=== PATIENT | male | born 1950 | race Two or more races ===

== ENCOUNTER 2022-04-29 19:12 | Inpatient (IN) | payer OTHER ==
[~2022-04-29] VITALS: Ht 182.9 cm; Wt 106.6 kg
--- NOTE | 2022-04-29 19:21 | NUR ---
CORBIN FROM A RESTAURANT, HAD LARGE BM W NOTED BLOOD, HYPOTENSIVE IN THE FIELD, WAS GIVEN APPROX 350ML NS CLOTH SHADER. PT A/OX4. TOLERATING R/A WELL WITH NO SOB. DENIES PAIN. CONNECTED PT TO POX AND MONITOR. SAFETY MEASURES IN PLACE.
--- NOTE | 2022-04-29 19:55 | NUR ---
RFA #18G S/L BLOOD COLLECTED AND SENT TO LAB
[2022-04-29] MEDS ORDERED: IV NS 0.9% 1,000 ML BAG IV ONE (20:00)
--- NOTE | 2022-04-29 20:07 | NUR ---
EMT AT PT'S BEDSIDE
--- NOTE | 2022-04-29 20:22 | NUR ---
DR. GUILLERMO JACKSON AT PT'S BEDSIDE FOR RECTAL EXAM
[2022-04-29 20:37] LABS: BASOPHILS % (AUTO) 0.5 % (0.0-2.0); EOSINOPHILS % (AUTO) 2.4 % (0.0-6.0); HEMATOCRIT 34 % (39-51); LYMPHOCYTES # (AUTO) 1.9 K/uL (0.8-4.8); MEAN CORPUSCULAR HGB CONC 32 g/dl (31.0-36.0); MEAN CORPUSCULAR VOLUME 61 fL (80-96); MONOCYTES # (AUTO) 0.6 K/uL (0.1-1.30); MONOCYTES % (AUTO) 7.6 % (2.0-12.0); NEUTROPHILS # (AUTO) 5.2 K/uL (1.8-8.9); NEUTROPHILS % (AUTO) 65.5 % (43.0-81.0); PLATELET COUNT (AUTO) 238 K/uL (150-450)
--- NOTE | 2022-04-29 20:44 | NUR ---
COVID SWAB COLLECTED AND SENT TO LAB
[2022-04-29 20:54] LABS: CALCIUM, SERUM 7.9 mg/dL (8.5-10.1); CARBON DIOXIDE 23 mmol/L (21-32); CHLORIDE 108 mmol/L (98-107); GLUCOSE 151 mg/dL (74-106); POTASSIUM 3.3 mmol/L (3.5-5.1); SODIUM SERUM 142 mmol/L (136-145); UREA NITROGEN, BLOOD 23 mg/dL (7-18)
[2022-04-29 20:57] LABS: OCCULT BLOOD STOOL POSITIVE (NEGATIVE)
[2022-04-29 21:01] LABS: ALANINE AMINOTRANSFERASE 28 U/L (12-78); ALBUMIN 3.5 g/dL (3.4-5.0); ALKALINE PHOSPHATASE 66 U/L (46-116); ASPARTATE AMINOTRANSFERASE 21 U/L (15-37); BILIRUBIN,DIRECT 0.2 mg/dL (0.0-0.2); BILIRUBIN,TOTAL 0.8 mg/dL (0.2-1.0); TOTAL PROTEIN, SERUM 6.3 g/dL (6.4-8.2)
--- NOTE | 2022-04-29 21:17 | NUR ---
CALLED DR MACKAY FOR GI CONSULT. WAITING FOR HIS CALL BACK
--- NOTE | 2022-04-29 21:24 | NUR ---
DR MACKAY ON THE PHONE WITH DR LI
[2022-04-29] MEDS ORDERED: Calcium Gluconate 1GM/10ML 4.65 MEQ in IV NS 0.9% 100 ML IV ONE (21:30)
[2022-04-29] MEDS ORDERED: Calcium Gluconate 0.465 MEQ/ML VIAL IV ONE (21:46)
--- NOTE | 2022-04-29 22:17 | NUR ---
KULWANT GALINDO DNP AT PT'S BEDSIDE FOR JOSEAL
[2022-04-29] MEDS ORDERED: ONDANSETRON HCL/PF 4 MG/2 ML VIAL IVP PRN (23:00)
[2022-04-29] MEDS ORDERED: MAG HYDROX/AL HYDROX/SIMETH 30 ML UDC PO PRN (23:00)
[2022-04-29] MEDS ORDERED: MORPHINE SULFATE INJ 2 MG/ML DISP.SYRIN IV PRN (23:00)
--- NOTE | 2022-04-29 23:45 | NUR ---
REPORT GIVEN TO SRIKANTH Florian RN FOR NORA
--- NOTE | 2022-04-30 00:28 | NUR ---
PT TRANSFERRED TO 3W VIA ACLS PROTOCOL. VSS. ALL BELONGINGS WITH PT. PT TEXTED SON TO GIVE HOME MEDS IN THE MORNING.
[2022-04-30 00:45] VITALS: BP 138/76
--- NOTE | 2022-04-30 00:45 | NUR ---
TELE/RN ADMITTING NOTE PATIENT ARRIVED TO UNIT VIA [facility] AND 2 STAFF MEMBERS. PATIENT IS BEING ADMITTED WITH DX OF LOWER GI BLEED. PATIENT IS ALERT AND ORIENTED X 4. ABLE TO MAKE NEEDS KNOWN. AMBULATED FROM RNEY TO BED WITH STEADY GAIT. DENIES PAIN AT THIS TIME. CONTINUES ON ROOM AIR WITH NO S/SX OF RESPIRATORY DISTRESS NOTED. IV ACCESS TO RIGHT FOREARM #18G INTACT, PATENT AND SALINE LOCKED. CONTINUES ON NPO STATUS FOR GI FOLLOW UP WITH DR. MACKAY IN AM. PATIENT AWARE AND AGREEABLE. TELE MONITOR PLACED WITH CURRENT READING SR WITH [facility]. SKIN CHECK PERFORMED ON ADMISSION WITH NO SKIN ISSUES NOTED. PATIENT ORIENTED TO ROOM, CALL LIGHT AND UNIT. CALL LIGHT WITHIN REACH. ASPIRATION, FALL AND SAFETY PRECAUTIONS MAINTAINED. ALL NEEDS ATTENDED TO AT THIS TIME.
[2022-04-30] MEDS: IV NS 0.9% 1,000 ML IV PRN ×2 (00:54→14:11)
--- NOTE | 2022-04-30 06:35 | NUR ---
TELE/RN CLOSING NOTE PATIENT CURRENTLY SLEEPING IN BED. ALERT AND ORIENTED X 4. ABLE TO MAKE NEEDS KNOWN. DENIES PAIN AT THIS TIME. CONTINUES ON ROOM AIR WITH NO S/SX OF RESPIRATORY DISTRESS NOTED. IV ACCESS TO RIGHT FOREARM #18G INTACT AND PATENT. CONTINUES ON IVF NS @ 75ML/HR. CONTINUES ON NPO STATUS FOR GI FOLLOW UP TODAY. PATIENT IS AMBULATORY WITH STEADY GAIT. CALL LIGHT WITHIN REACH. ASPIRATION, FALL AND SAFETY PRECAUTIONS MAINTAINED. WILL ENDORSE PLAN OF CARE TO ONCOMING SHIFT RN. Addendum: 04/30/22 at 0641 by OANH RIOS RN TELE MONITOR CURRENTLY READING SR WITH [facility].
--- NOTE | 2022-04-30 07:35 | NUR ---
RN Opening Note Received report from RN, pt sleeping with no signs of distress, easily aroused. Will continue to monitor throughout shift. Pts IV Intact with no signs of infiltration. All safety precautions taken, bed at lowest position, call light and table within reach.
[2022-04-30 07:47] LABS: BASOPHILS % (AUTO) 0.1 % (0.0-2.0); EOSINOPHILS % (AUTO) 1.4 % (0.0-6.0); HEMATOCRIT 30 % (39-51); HEMOGLOBIN 9.5 g/dL (13.5-17.5); LYMPHOCYTES # (AUTO) 1.1 K/uL (0.8-4.8); LYMPHOCYTES % (AUTO) 14.7 % (20.0-44.0); MEAN CORPUSCULAR HGB CONC 32 g/dl (31.0-36.0); MEAN CORPUSCULAR VOLUME 62 fL (80-96); MONOCYTES # (AUTO) 0.5 K/uL (0.1-1.30); MONOCYTES % (AUTO) 7.1 % (2.0-12.0); NEUTROPHILS # (AUTO) 5.7 K/uL (1.8-8.9); NEUTROPHILS % (AUTO) 76.7 % (43.0-81.0); PLATELET COUNT (AUTO) 222 K/uL (150-450); RED BLOOD CELL COUNT(AUTO) 4.83 MIL/uL (4.5-6.0); WHITE BLOOD COUNT (AUTO) 7.4 K/uL (4.3-11.0)
[2022-04-30 08:00] VITALS: BP 144/75
[2022-04-30 08:03] LABS: THYROID STIMULATING HORMONE 1.304 uIU/mL (0.358-3.74)
[2022-04-30 08:04] LABS: CALCIUM, SERUM 7.3 mg/dL (8.5-10.1); CREATININE 0.9 mg/dL (0.6-1.3); MAGNESIUM 1.8 mg/dL (1.8-2.4); PHOSPHORUS 3.2 mg/dL (2.5-4.9)
[2022-04-30] MEDS: PANTOPRAZOLE 40 MG VIAL IV SCH ×2 (08:55→20:58)
[2022-04-30] MEDS ORDERED: LISI20TA30 PO (09:27)
[2022-04-30] MEDS ORDERED: ATOR40TA PO (09:27)
[2022-04-30] MEDS ORDERED: HYDR12.55 PO (09:27)
[2022-04-30 10:24] LABS: EOSINOPHILS % (MANUAL) 1 % (0-4); LYMPHOCYTES % (MANUAL) 10 % (16-48); MONOCYTES % (MANUAL) 6 % (0-11.0); NEUTROPHILS % (MANUAL) 83 (42-76)
[2022-04-30] MEDS ORDERED: TUBERCULIN,PURIF.PROT.DERIV. 5 TU/0.1 ML VIAL ID ONE (10:30)
--- NOTE | 2022-04-30 11:35 | NUR ---
Mid Shift RN Note PT AO x4, son stopped by wanted to discuss patients condition, per father its ok to speak with son. Provided plan previously discussed with patient. Patient agrees will continue to monitor for rectal bleed. Bowel movement at 1000 with some red blood, patient states it is less blood than previous. will continue to monitor. Educated patient on importance of monitoring his own symptoms and expressing any concerns. All safety precautions taken, no incidents.
[2022-04-30 12:00] VITALS: BP 140/72
[2022-04-30] MEDS ORDERED: PEG 3350/NA SULF,BICARB,CL/KCL 4,000 ML BOTTLE PO ONE (16:00)
[2022-04-30 16:09] VITALS: BP 115/64
--- NOTE | 2022-04-30 18:23 | NUR ---
standpipe tender Note Pt AOx4, agrees with discharge home. States he will follow up with his PCP tomorrow 05/01/22. All belongings returned to pt. Educated patient on importance of monitoring sugars at home and monitoring self for symptoms of hypokalemia, hyperglycemia and hypoglycemia, pt verbalizes understanding. All safety precautions taken with patient, no incidents throughout shift. Patient was walked to main entrance, per physician patient is able to go home with no emergency department rn. Name band and IV removed, IV removed intact. Addendum: 04/30/22 at 1834 by MARTY KURTZ RN Wrong Patient.
--- NOTE | 2022-04-30 18:34 | NUR ---
Patient AOx4, patient reports no discomfort other than rectal discomfort. Patient continued to have bloody Bowel Movements throughout shift. Patient has been stable and monitored, son has been in and out spending time with his father. Patient currently working on drinking golytely and preparing for tomorrows colonoscopy per Dr. Boss tomorrow, 05/01/22, patient agrees with plan of care. Patients needs were attended to throughout shift and medications administered as prescribed. No incidents throughout shift all safety precautions taken, call light and table within reach, bed at lowest position. Will endorse to continue to monitor vitals and lab results
--- NOTE | 2022-04-30 19:30 | NUR ---
PT RECEIVED AWAKE SITTING ON BED, A/OX4, REPORTS NO DISCOMFORT OTHER THAN HIS RECTUM. PT REPORT RECEIVED THAT PT CONTINUES TO HAVE BLOODY BOWEL MOVEMENTS. PT NEEDS TO FINISH GOLYTELY AND PREPERARING FOR COLONOSCOPY ON 05/01/[address] MACKAY. NPO POST MIDNIGHT. RFA IV #18G INTACT INFUSING NS @ 75ML/HR. CONTINENT WITH BRP. SAFETY MEASURES IN PLACE. BED LOCKED IN LOWEST POSITION. SIDERAILS UP X2, BED ALARM ON, CALL LIGHT WITHIN REACH. WILL CONTINUE PLAN OF CARE.
[2022-04-30 20:00] VITALS: BP 132/66
[2022-05-01] VITALS: BP_SYST 100; BP_SYST 110; BP_DIAS 47; BP_DIAS 59
[2022-05-01 04:00] VITALS: BP 128/65
[2022-05-01] MEDS: IV NS 0.9% 1,000 ML IV PRN (05:26)
--- NOTE | 2022-05-01 06:37 | NUR ---
PT ASLEEP, RESTING COMFORTABLY. EASILY AWAKEN. A/OX4, REPORTS NO DISCOMFORT. PT HAD BLOODY BM X2. FELT NAUSEOUS AFTER HAVING BM. PRN MED GIVEN. PROVIDED REST AND COMFORT. COMMODE PLACED AT BEDSIDE. PT FINISHED GOLYTELY IN PREPERATION FOR COLONOSCOPY ON 05/01/2022. NPO POST MIDNIGHT. RFA IV #18G INTACT INFUSING NS @ 75ML/HR. CONTINENT WITH BRP/COMMODE WITH ASSIST. DVT PLACED. SAFETY MEASURES MAINTAINED. BED LOCKED IN LOWEST POSITION. SIDERAILS UP X2, BED ALARM ON, CALL LIGHT WITHIN REACH. WILL ENDORSE TO NEXT NURSE ON DUTY FOR CONTINUITY OF CARE.
[2022-05-01 06:57] LABS: CALCIUM, SERUM 7.1 mg/dL (8.5-10.1); CREATININE 0.8 mg/dL (0.6-1.3); POTASSIUM 3.9 mmol/L (3.5-5.1)
--- NOTE | 2022-05-01 07:30 | NUR ---
TELE/RN ADMITTING NOTE RECEIVED PATIENT ASLEEP BUT EASILY ROUSED. ALERT AND ORIENTED X 4. ABLE TO MAKE NEEDS KNOWN. DENIES PAIN AT THIS TIME. CONTINUES ON ROOM AIR WITH NO S/SX OF RESPIRATORY DISTRESS NOTED. IV ACCESS TO RIGHT FOREARM #18G INTACT, RUNNING NS @ 75ML/HR. CONTINUES ON NPO STATUS FOR GI FOLLOW UP WITH DR. MACKAY FOR COLONOSCOPY @ 1200. PATIENT AWARE AND AGREEABLE. TELE MONITOR PLACED WITH CURRENT READING SR WITH [facility]. ASPIRATION, FALL AND SAFETY PRECAUTIONS MAINTAINED, CALL LIGHT AND TABLE WITHIN REACH, WILL CONT TO MONITOR. Addendum: 05/01/22 at 1929 by ABHAY OLIVIA RN EASTERN PHILOSOPHY PROFESSOR OPENING NOTES
[2022-05-01] MEDS ORDERED: ANESTHESIA TRAY IN PYXIS 1 EA TRAY MC ONE (08:29)
[2022-05-01 09:22] LABS: BASOPHILS % (AUTO) 0.3 % (0.0-2.0); EOSINOPHILS % (AUTO) 1.8 % (0.0-6.0); HEMATOCRIT 22 % (39-51); LYMPHOCYTES # (AUTO) 1.3 K/uL (0.8-4.8); LYMPHOCYTES % (AUTO) 17.7 % (20.0-44.0); MEAN CORPUSCULAR HGB CONC 32 g/dl (31.0-36.0); MEAN CORPUSCULAR VOLUME 61 fL (80-96); MONOCYTES # (AUTO) 0.4 K/uL (0.1-1.30); MONOCYTES % (AUTO) 5.3 % (2.0-12.0); NEUTROPHILS # (AUTO) 5.7 K/uL (1.8-8.9); NEUTROPHILS % (AUTO) 74.9 % (43.0-81.0); PLATELET COUNT (AUTO) 193 K/uL (150-450); RED BLOOD CELL COUNT(AUTO) 3.57 MIL/uL (4.5-6.0); WHITE BLOOD COUNT (AUTO) 7.6 K/uL (4.3-11.0)
[2022-05-01] MEDS: PANTOPRAZOLE 40 MG VIAL IV SCH ×2 (10:55→20:12)
[2022-05-01] MEDS ORDERED: FENTANYL PF 100MCG/2ML AMPUL ONE (11:26)
[2022-05-01 11:29] LABS: EOSINOPHILS % (MANUAL) 2 % (0-4); LYMPHOCYTES % (MANUAL) 17 % (16-48); MONOCYTES % (MANUAL) 2 % (0-11.0); NEUTROPHILS % (MANUAL) 79 (42-76)
--- NOTE | 2022-05-01 11:30 | NUR ---
DIAMOND EXPERT NOTES ( OR STAFF COMPANY ACCOUNTANT) OR STAFF PICKED UP PT FOR COLONOSCOPY. ALL CONSENTS, CHECKLIST DONE, PRE OP VS WNL- BP 121/62, HR-75, RR-18, TEMP 98.3 O2 SAT - 98% 0N RA.
[2022-05-01 12:00] VITALS: BP 123/67
--- NOTE | 2022-05-01 13:55 | NUR ---
POST PROCEDURE: OR STAFF BROUGHT PT BACK TO UNIT, PT REMAINS STABLE POST OP- VS, WNL- BP- 129/66 HR-77 RR-18 TEMP 98.0- O2 SAT- 97% ON RA. REVIEWED POST OP MD ORDERS, WILL CARRY OUT. SAFETY MEASURES OBSERVED, CALL LIGHT AND TABLE WITHIN REACH, ENCOURAGE PT TO CALL FOR ASSISTANCE NEEDED, PT VERBALIZED UNDERSTANDING.
[2022-05-01 16:00] VITALS: BP 125/73
--- NOTE | 2022-05-01 19:30 | NUR ---
DRIVER'S LICENSE REVIEWING OFFICER CLOSING NOTES: PATIENT ASLEEP BUT EASILY ROUSED. ALERT AND ORIENTED X 4. ABLE TO MAKE NEEDS KNOWN. DENIES PAIN AT THIS TIME. CONTINUES ON ROOM AIR WITH NO S/S OF RESPIRATORY DISTRESS NOTED. IV ACCESS TO RIGHT FOREARM #18G INTACT, RUNNING NS @ 75ML/HR. PATIENT AWARE AND. TELE MONITOR CURRENT READING SINUS TACH 107. ASPIRATION, FALL AND SAFETY PRECAUTIONS MAINTAINED, CALL LIGHT AND TABLE WITHIN REACH, ENDORSED TO PM SHIFT.
--- NOTE | 2022-05-01 19:30 | NUR ---
RN OPENING NOTES; RECEIVED PT IN BED SLEEPING BUT EASY TO AROUSED.AOX4 ABLE TO VERBALIZE NEEDS,ON RM AIR MARY WELL SATTING 97.6IV ACCESS ON RFA 18G WITH NS @75ML/RH.PATENT AND INTACT,NO SIGN OF PAIN AT THIS TIME,SAFETY MEASURE INPLACE,CALL LIGHT WITHIN REACH,BED LOW AND LOCKED POSITION.WILL CONTINUE TO MONITOR.
[2022-05-01 20:00] VITALS: BP 127/67
[2022-05-02] VITALS (7 sets, daily range): BP systolic 108–127; BP diastolic 51–73
[2022-05-02 06:03] LABS: BASOPHILS % (AUTO) 0.3 % (0.0-2.0); EOSINOPHILS % (AUTO) 1.5 % (0.0-6.0); HEMATOCRIT 21 % (39-51); LYMPHOCYTES # (AUTO) 1.1 K/uL (0.8-4.8); LYMPHOCYTES % (AUTO) 14.8 % (20.0-44.0); MEAN CORPUSCULAR HGB CONC 32 g/dl (31.0-36.0); MEAN CORPUSCULAR VOLUME 62 fL (80-96); MONOCYTES # (AUTO) 0.6 K/uL (0.1-1.30); MONOCYTES % (AUTO) 7.2 % (2.0-12.0); NEUTROPHILS # (AUTO) 5.8 K/uL (1.8-8.9); NEUTROPHILS % (AUTO) 76.2 % (43.0-81.0); PLATELET COUNT (AUTO) 198 K/uL (150-450); RED BLOOD CELL COUNT(AUTO) 3.38 MIL/uL (4.5-6.0); WHITE BLOOD COUNT (AUTO) 7.6 K/uL (4.3-11.0)
[2022-05-02] MEDS: IV NS 0.9% 1,000 ML IV PRN (06:10)
--- NOTE | 2022-05-02 06:16 | NUR ---
RN CLOSING NOTES; PT IN BED WATCHING TV AAOX4, ABLE TO VERBALIZE NEEDS,ON RM AIR MARY WELL NO SIGN SOB/DISTRESS NOTED, SATTING 98,DUE MEDS GIVEN ORDERED,ALL NEEDS ATTENDED,NO COMPLAINED OF PAIN/DISCOMFORT DURING SHIFT,IV ACCESS ON RFA 18G WITH NS @75ML/RH.PATENT AND INTACT,SAFETY MEASURE INPLACE,CALL LIGHT WITHIN REACH,BED LOW AND LOCKED POSITION.WILL ENDORSED TO NEXT SHIFT.
[2022-05-02 06:30] LABS: CALCIUM, SERUM 7.3 mg/dL (8.5-10.1); CREATININE 0.9 mg/dL (0.6-1.3); POTASSIUM 3.4 mmol/L (3.5-5.1)
--- NOTE | 2022-05-02 07:20 | NUR ---
RN OPENING NOTES RECEIVED PATIENT RESTING IN BED, A&OX4. ABLE TO VERBALIZE NEEDS. STABLE ON RA WITH NO S/SX OF DISTRESS NOTED. DENIES PAIN AT THIS TIME. IV ACCESS ON RFA G#18 WITH NS RUNNING @75 ML/HR. SAFETY PRECAUTIONS IN PLACE. WILL CONTINUE TO MONITOR
--- NOTE | 2022-05-02 07:38 | NUR ---
RN NOTES RECEIVED CRITICAL LAB OF HEMOGLOBIN 6.7. MD NOTIFIED
[2022-05-02 07:39] LABS: HEMOGLOBIN 6.7 g/dL (13.5-17.5)
[2022-05-02] MEDS: PANTOPRAZOLE 40 MG VIAL IV SCH ×2 (08:52→20:39)
[2022-05-02] MEDS ORDERED: POTASSIUM CHLORIDE 20 MEQ TAB.PRT.SR PO SCH (10:00)
--- NOTE | 2022-05-02 12:09 | NUR ---
RN NOTES BLOOD TRANSFUSION START TIME: 1209. PATIENT STABLE AND PROVIDED CONSENT FOR TRANSFUSION. VS: TEMP 97.9, HR 80, RESP 17, BP 127/63
--- NOTE | 2022-05-02 18:46 | NUR ---
RN CLOSING NOTES PATIENT IS STABLE IN BED. NO DISTRESS NOTED. NO COMPLAINTS AT THIS TIME. ALL NEEDS MET. SAFETY PRECAUTIONS IN PLACE. WILL ENDORSE TO THE MONOTYPER NURSE FOR NORA.
--- NOTE | 2022-05-02 19:14 | NUR ---
RN OPENING NOTES PT IN BED WATCHING TV AAOX4, ABLE TO VERBALIZE NEEDS,ON RM AIR MARY WELL NO SIGN SOB/DISTRESS NOTED ALL NEEDS ATTENDED,NO COMPLAINED OF PAIN/DISCOMFORT AT THIS TIME.,IV ACCESS ON LFA 18G WITH NS @75ML/RH.PATENT AND INTACT,SAFETY MEASURE IN PLACE,CALL LIGHT WITHIN REACH,BED LOW AND LOCKED POSITION.WILL CONTINUE TO MONITOR.
[2022-05-03] VITALS (10 sets, daily range): BP systolic 112–131; BP diastolic 60–70
[2022-05-03 05:57] LABS: BASOPHILS % (AUTO) 0.2 % (0.0-2.0); EOSINOPHILS % (AUTO) 1.2 % (0.0-6.0); LYMPHOCYTES # (AUTO) 0.9 K/uL (0.8-4.8); LYMPHOCYTES % (AUTO) 16.2 % (20.0-44.0); MEAN CORPUSCULAR HGB CONC 33 g/dl (31.0-36.0); MEAN CORPUSCULAR VOLUME 64 fL (80-96); MONOCYTES # (AUTO) 0.5 K/uL (0.1-1.30); MONOCYTES % (AUTO) 8.4 % (2.0-12.0); PLATELET COUNT (AUTO) 193 K/uL (150-450); RED BLOOD CELL COUNT(AUTO) 3.11 MIL/uL (4.5-6.0); WHITE BLOOD COUNT (AUTO) 5.4 K/uL (4.3-11.0)
[2022-05-03 06:07] LABS: HEMOGLOBIN 6.5 g/dL (13.5-17.5)
[2022-05-03 06:08] LABS: HEMATOCRIT 20 % (39-51)
[2022-05-03 06:46] LABS: CALCIUM, SERUM 7.1 mg/dL (8.5-10.1); CREATININE 0.9 mg/dL (0.6-1.3); POTASSIUM 3.5 mmol/L (3.5-5.1)
--- NOTE | 2022-05-03 06:52 | NUR ---
RN CLOSING NOTES PT IN BED ASLEEP AAOX4, ABLE TO VERBALIZE NEEDS,ON RM AIR TOLERATED WELL NO SIGN SOB/DISTRESS NOTED ALL NEEDS ATTENDED,NO COMPLAINED OF PAIN/DISCOMFORT AT THIS TIME.,IV ACCESS ON LFA 18G S/L AT THIS ITME PER PT REQUEST.,SAFETY MEASURE IN PLACE,CALL LIGHT WITHIN REACH,BED LOW AND LOCKED POSITION. Addendum: 05/03/22 at 0654 by KANWAL DAVID RN PT HGB IS 6.5 DESPITE TRASFUSION ON 1 UNIT OF PRBC YESTERDAY [employer] DR GALINDO MADE AWARE AWAITING FOR ANY NEW ORDERS. WILL ENDORSE FOR DAY SHIFT TO FOLLOW UP. Addendum: 05/03/22 at 0711 by KANWAL DAVID RN PT REPORTED TWO BLOODY STOOL THIS MORNING.
--- NOTE | 2022-05-03 07:20 | NUR ---
RN OPENING NOTES RECEIVED PATIENT IN BED AWAKE AOX4, ABLE TO VERBALIZE NEEDS,ON RM AIR MARY WELL NO SIGN SOB/DISTRESS NOTED ,NO COMPLAINED OF PAIN/DISCOMFORT AT THIS TIME.,IV ACCESS ON LFA 18G WITH NS @75ML/RH.PATENT AND INTACT,SAFETY MEASURE IN PLACE,CALL LIGHT WITHIN REACH,BED LOW AND LOCKED POSITION.WILL CONTINUE TO MONITOR.
--- NOTE | 2022-05-03 09:00 | NUR ---
RN NOTES PATIENT IS WITH ORDER FOR BLOOD TRANSFUSION OF 1 UNIT OF PRBC , BLOOD BANK DONE WITH TYPE AND CROSS MATCH AND LB CALLED THAT BLOOD IS READY FOR LIBRARY SALES CONSULTANT
--- NOTE | 2022-05-03 09:45 | NUR ---
RN NOTES PATIENTS V/S WAS CHECKED AND WITHIN NORMAL LIMITS NO FEVER NOTED
--- NOTE | 2022-05-03 10:03 | NUR ---
RN NOTES STARTED BLOOD TRANSFUSION VERIFIED AND CO- SINGED WITH OTHER RN
--- NOTE | 2022-05-03 10:18 | NUR ---
RN NOTES CONTINUE WITH ON GOING BLOOD TRANSFUSION AND OBSERVED FOR 15 MINUTES AND V/S TAKEN AND RECORDED WITH NO FEVER AND NO REACTION NOTED FROM THE PATIENT
[2022-05-03] MEDS: PANTOPRAZOLE 40 MG VIAL IV SCH ×2 (10:38→21:10)
--- NOTE | 2022-05-03 10:48 | NUR ---
RN NOTES CONTINUE ON BLOOD TRANSFUSION AND INCREASE TO 80CC /HOUR , V/S TAKEN AND RECORDED , PATIENT WITH NO FEVER NO REACTION NOTED , IN A STABLE CONDITION
--- NOTE | 2022-05-03 11:48 | NUR ---
RN NOTES PATIENT CONTINUE ON BLOOD TRANSFUSION AND NO CHANGES NOTED , V/S TAKEN AND RECORDED WITH NO FEVER , AND NO ADVERSE REACTION NOTED .
--- NOTE | 2022-05-03 13:50 | NUR ---
RN NOTES BLOOD TRANSFUSION ENDED AT AROUND 1350 , V/S TAKEN AND RECORDED , WITH NO ADVERSE REACTION NOTED , NO FEVER AND PATIENT IN A STABLE CONDITION , WILL CONTINUE TO MONITOR .
--- NOTE | 2022-05-03 14:00 | NUR ---
RN NOTES WITH ORDER OF NS @75 ML/HOUR FOR HYDRATION AND REFUSED , PATIENT SAID THAT HE IS DRINKING A LOT OF WATER AND EATING GOOD
--- NOTE | 2022-05-03 16:00 | NUR ---
RN NOTES PATIENT S/P BLOOD TRANSFUSION WITH 1 UNIT PRBC , V/S TAKEN AND RECORDED BP 122/68, P 70 , RR 20 , TEMP 98.2AND 99% O2 SATURATION ROOM AIR . PATIENT IS STABLE AT THIS TIME , NO FEVER , NO ADVERSE REACTION NOTED , WILL CONTINUE TO MONITOR
--- NOTE | 2022-05-03 18:39 | NUR ---
DIRECTOR OF PRECLINICAL RESEARCH CLOSING NOTES RECEIVED PATIENT IN BED AWAKE AOX4, ABLE TO VERBALIZE NEEDS,ON RM AIR MARY WELL NO SIGN SOB/DISTRESS NOTED ,NO COMPLAINED OF PAIN/DISCOMFORT AT THIS TIME. ON TELE MONITOR AND READING OF SR 75 PVC . ALL DUE MEDS GIVEN HGB OF 6.5 AND 1 UNIT PRBC GIVEN AND NO ADVERSE REACTION NOTED AND V/S WITHIN NORMAL WHILE IN TRANFUSION IV ACCESS ON RIGHT HAND 18G SL .PATENT AND INTACT,SAFETY MEASURE IN PLACE,CALL LIGHT WITHIN REACH,BED LOW AND LOCKED POSITION. ENDORSED TO NEXT SHIFT .
--- NOTE | 2022-05-03 19:20 | NUR ---
RN NOTES: RECEIVED AWAKE ON BED, A/OX4 , ORIENTED TO UNIT AND STAFF, VERY FRIENDLY, ON TELE MONITORING SINUS RHYTHM-78 WITH PVC, WITH BRP, CONTINENT B/B AMBULATORY, IV CANNULA ON THE RH G#18, HE JUST COMPLETE 1 UNIT OF PRBC, FOR LABS IN THE MORNING, PER ENDORSEMENT HE WAS SUPPOSE TO HAVE IVF OF NS AT 75 ML/HR, BUT HE REFUSED FOR IVF, HE HAS ADEQUATE ORAL INTAKE, AND DRINKING FLUIDS TOLERATED, HE HAS GOOD SKIN TURGOR, NOT DEHYDRATED.NO SOB, NON LABORED BREATHING, ON ROOM AIR. -SAFETY PRECAUTION OBSERVED KEPT CALL LIGHT WITHIN EASY REACH.
[2022-05-04] VITALS: BP 135/75
--- NOTE | 2022-05-04 03:56 | NUR ---
RN NOTES: ASLEEP IN THE NIGHT, CHECK AT FREQUENT INTERVALS, KEPT CALL LIGHT WITHIN EASY REACH.
[2022-05-04 04:00] VITALS: BP 120/73
--- NOTE | 2022-05-04 06:43 | NUR ---
RN NOTES: -ASLEEP IN THE NIGHT, NEEDS ATTENDED, NO COMPLAINTS OF PAIN OR DISCOMFORT, NO SIGN OF RESPIRATORY DISTRESS, AMBULATING GOING TO THE BATHROOM,HE VERBALIZED HE PASS SMALL AMOUNT OF STOOL, ONLY BLOOD STREAK NOTED, HE SAID HE DOES NOT BLEED ANYMORE UNLIKE BEFORE.ON TELE MONITOR SINUS RHYTHM WITH PVC RATE-69.LABS DONE, F/U RESULT. ENDORSED FOR CONTINUITY OF CARE.
[2022-05-04 06:52] LABS: BASOPHILS % (AUTO) 0.3 % (0.0-2.0); HEMATOCRIT 22 % (39-51); HEMOGLOBIN 7.4 g/dL (13.5-17.5); LYMPHOCYTES # (AUTO) 1.4 K/uL (0.8-4.8); LYMPHOCYTES % (AUTO) 23.6 % (20.0-44.0); MEAN CORPUSCULAR HGB CONC 33 g/dl (31.0-36.0); MEAN CORPUSCULAR VOLUME 66 fL (80-96); MONOCYTES # (AUTO) 0.7 K/uL (0.1-1.30); MONOCYTES % (AUTO) 10.7 % (2.0-12.0); NEUTROPHILS # (AUTO) 3.7 K/uL (1.8-8.9); NEUTROPHILS % (AUTO) 61.4 % (43.0-81.0); PLATELET COUNT (AUTO) 211 K/uL (150-450); RED BLOOD CELL COUNT(AUTO) 3.41 MIL/uL (4.5-6.0); WHITE BLOOD COUNT (AUTO) 6.1 K/uL (4.3-11.0)
[2022-05-04 07:03] LABS: CALCIUM, SERUM 7.4 mg/dL (8.5-10.1); CREATININE 0.8 mg/dL (0.6-1.3); POTASSIUM 3.5 mmol/L (3.5-5.1)
--- NOTE | 2022-05-04 07:22 | NUR ---
TELE/RN ADMITTING NOTE RECEIVED PATIENT ASLEEP BUT EASILY ROUSED. ALERT AND ORIENTED X 4. ABLE TO MAKE NEEDS KNOWN. DENIES PAIN AT THIS TIME. CONTINUES ON ROOM AIR WITH NO S/SX OF RESPIRATORY DISTRESS NOTED. TELE MONITOR READING SR 88. IV ACCESS TO L FOREARM #20 INTACT, SL. ASPIRATION, FALL AND SAFETY PRECAUTIONS MAINTAINED, CALL LIGHT AND TABLE WITHIN REACH, WILL CONT TO MONITOR.
[2022-05-04] MEDS: PANTOPRAZOLE 40 MG VIAL IV SCH (09:21)
[2022-05-04] MEDS ORDERED: PANT40TA2 PO (09:45)
[2022-05-04] MEDS ORDERED: RIFA550T PO (09:51)
--- NOTE | 2022-05-04 11:30 | NUR ---
SUPERVISOR SPECIAL EFFECTS DC NOTES: DC ORDERS CARRIED OUT. PT IS CURRENTLY STABLE, VS WNL, NO S/S OF SOB OR ACUTE DISTRESS NOTES. TELE MONITOR, IV ACCESS AND ID BAND REMOVED. EDUCATED PT ON DC INSTRUCTIONS, PT VERBALIZED UNDERSTANDING AND SIGNED. BELONGINGS LIST REVIEWED AND SIGNED. PT ESCORTED TO LOBBY BY STAFF, LEFT WITH SON LYNN VIA PRIVATE CAR.
== END 2022-05-04 12:00 | disposition home or self-care (01) | DRG 378 ==
LOC: ER 19:15 → TELE 23:45
PROVIDERS: ADMIT Nurse Practitioner Acute Care; ATTEND Internal Medicine
PROC: 0DJD8ZZ Inspection of Lower Intestinal Tract, Via Natural or Artificial Opening Endoscopic (ICD-10-PCS; principal; 2022-05-02)
PROC: 30233N1 Transfusion of Nonautologous Red Blood Cells into Peripheral Vein, Percutaneous Approach (ICD-10-PCS; 2022-05-02)
DX: K57.31 Diverticulosis of large intestine without perforation or abscess with bleeding (principal); D62 Acute posthemorrhagic anemia; I10 Essential (primary) hypertension; Z20.822 Contact with and (suspected) exposure to COVID-19; K64.8 Other hemorrhoids; E66.9 Obesity, unspecified; E78.5 Hyperlipidemia, unspecified; Z87.891 Personal history of nicotine dependence; Z68.31 Body mass index [BMI] 31.0-31.9, adult
CPT/HCPCS: 36415; 80048-TC; 80076-TC; 82272-TC; 83735-TC; 84100-TC; 84443-TC; 85025-TC; 85730-TC; 86580-TC; 86850-TC; 87081-TC; C9113; C9803; G0378; J0610; J2405; J2704; J3010; J3490; J7030; J7040; P9016